=== PATIENT | female | born 1995 | race Hispanic/Latino ===

== ENCOUNTER 2019-05-22 15:33 | Emergency (ER) | payer SELFPAY ==
[2019-05-22] MEDS ORDERED: Acetaminophen 500 MG TAB ONE (15:49)
== END 2019-05-22 16:22 | disposition home or self-care (01) ==
LOC: ERS 15:33
DX: J10.1 Influenza due to other identified influenza virus with other respiratory manifestations (principal)
CPT/HCPCS: 87804; 99283